=== PATIENT | male | born 1960 | race Hispanic/Latino ===

== ENCOUNTER 2018-02-18 15:03 | Inpatient (IN) | payer BC, SELFPAY ==
[2018-02-18 16:20] LABS: #Basophils 0.1 thou/uL (0.0-0.2); #Eosinphils 0.1 thou/uL (0.0-0.7); #Lymphocytes 1.3 thou/uL (1.20-3.40); #Monocytes 0.3 thou/uL (0.11-0.59); #Neutrophils 2.2 thou/uL (1.40-6.50); %Basophils 1.9 % (0.0-1.0); %Eosinophils 3.6 % (0.0-10.0); %Lymphocytes 32.4 % (21.0-51.0); %Monocytes 7.4 % (0.0-10.0); %Neutrophils 54.7 % (42.0-75.0); Mean Corpuscular HGB CONC 32.9 g/dL (32.0-36.0); Mean Corpuscular Hemoglobin 32.9 pg (27.0-31.0); Mean Platelet Volume 7.7 fL (7.4-10.4); Platelet Count 165 thou/uL (130-400); RBC Distribution Width 11.6 % (11.5-14.5); Red Blood Cell (RBC) Count 4.25 mill/uL (4.70-6.10)
[2018-02-18 16:27] LABS: INR-International Normal Ratio 0.9; Prothrombin Time 12.2 SEC (12.0-14.7)
[2018-02-18 16:32] LABS: ALT (SGPT) 53 U/L (8-55); AST (SGOT) 80 U/L (5-34); Albumin 2.5 g/dL (3.5-5.0); Alkaline Phosphatase 107 U/L (40-150); Anion Gap 10 mmol/L (10-20); BUN (Urea Nitrogen) 44 mg/dL (8.4-25.7); Bilirubin, Total 0.3 mg/dL (0.2-1.2); Calc. Creatinine Clearance 0 mL/min (70-130); Calcium 8.5 mg/dL (7.8-10.44); Carbon Dioxide 28 mmol/L (22-29); Chloride 107 mmol/L (98-107); Estimated GFR-MDRD 38; Globulin 4.1 g/dL (2.4-3.5); Glucose 93 mg/dL (70-105); Potassium 4.2 mmol/L (3.5-5.1); Protein, Total 6.6 g/dL (6.0-8.3); Sodium 141 mmol/L (136-145)
[2018-02-18 16:51] LABS: HBCM Index 0.06 S/CO (0-0.79); HBSAg Index 0.21 S/CO (0-0.99); Hep A IgM AB Non-Reactive (NonReactive); Hep A IgM S/CO 0.18 S/CO (0-0.79); Hep B Surf Ag Non-Reactive S/CO (NonReactive); Hepatitis B Core IgM Abs Non-Reactive (NonReactive)
[2018-02-18] MEDS ORDERED: cloNIDine 0.1 MG TAB ONE (17:11)
[2018-02-18 17:32] LABS: Hep C IgG Ab Reflex HepC Qnt (NonReactive); Hep C Index 16.28 S/CO (0-0.79)
--- NOTE | 2018-02-18 18:39 | CT ---
ABDOMEN AND PELVIC CT SCAN WITH IV CONTRAST: 02/18/18 HISTORY: 58-year-old male with history of abdominal pain and distention, worsening over the last month. There are linear and parenchymal changes in both lung bases, evidence for some chronic change or subs egmental atelectasis. There is very extensive ascites throughout the abdomen and pelvis. No hepatospl enomegaly. The gallbladder appears unremarkable. The pancreas and adrenal glands are unremarkable. Th ere is no renal calculus or evidence for acute obstruction. Normal appearing appendix. There is so me ascitic fluid extending into the orifice of the right inguinal canal with some associated fatty he rniation. IMPRESSION: Very extensive ascites throughout the abdomen and pelvis. Linear and parenchymal changes in the lung bases, possibly chronic versus subsegmental atelectasis. No evidence for other significant acute proc ess. No renal calculus or obstruction. No CT evidence for acute appendicitis. Other findings as ab ove. POS: [facility]
[2018-02-18 18:55] LABS: Bilirubin Negative (Negative); Blood, Urine Trace (Negative); Clarity CLEAR (Clear); Glucose, Urine (Dipstick) Negative (Negative); Leukocyte Negative (Negative); Nitrite Negative (Negative); Protein, Urine (Dipstick) 300 mg/dL (Neg-Trace); Specific Gravity, Urine 1.022 (1.002-1.036); pH, Urine 6.5 (5.0-9.0)
[2018-02-18 19:00] LABS: Bacteria/HPF None Seen HPF (None Seen); Hyaline Casts/LPF 0-3 HYALINE CAST LPF (0-3 Hyaline); Pathc Cast-AUWi Flag 0.14 (0-2.49); RBC/HPF 0-3 HPF (0-3); Squamous Epithelial None Seen HPF (0-3); WBC/HPF 0-3 HPF (0-3)
[2018-02-18 19:59] LABS: Troponin I 0.028 ng/mL (< 0.028)
[2018-02-18] MEDS ORDERED: Nitroglycerin 50 MG/250 ML BOT 250 ML ONE (20:06)
[2018-02-18] MEDS ORDERED: Nitroglycerin 2% Ointment 1 INCH/1 GM Packet ONE (22:40)
[2018-02-18 23:38] LABS: Troponin I 0.015 ng/mL (< 0.028)
[2018-02-18] MEDS ORDERED: hydrALAZINE 20 MG/ML VIAL ONE (23:43)
[2018-02-19] MEDS ORDERED: Senokot S 8.6-50 MG TAB PO PRN (03:30)
[2018-02-19] MEDS ORDERED: Bisacodyl 5 MG TAB PO PRN (03:30)
[2018-02-19] MEDS ORDERED: Acetaminophen 650 MG Suppository PR PRN (03:30)
[2018-02-19] MEDS ORDERED: Acetaminophen 325 MG TAB PO PRN (03:30)
[2018-02-19] MEDS ORDERED: Calcium Carbonate 500 MG ChewTAB PO PRN (03:30)
[2018-02-19 05:52] LABS: #Eosinphils 0.1 thou/uL (0.0-0.7); #Lymphocytes 0.9 thou/uL (1.20-3.40); #Monocytes 0.3 thou/uL (0.11-0.59); #Neutrophils 1.8 thou/uL (1.40-6.50); %Basophils 0.8 % (0.0-1.0); %Eosinophils 3.6 % (0.0-10.0); %Lymphocytes 28.7 % (21.0-51.0); %Monocytes 8.7 % (0.0-10.0); %Neutrophils 58.1 % (42.0-75.0); Hemoglobin 11.9 g/dL (14.0-18.0); Mean Corpuscular HGB CONC 33.7 g/dL (32.0-36.0); Mean Corpuscular Hemoglobin 33.5 pg (27.0-31.0); Mean Corpuscular Volume 99.4 fL (78.0-98.0); Mean Platelet Volume 7.7 fL (7.4-10.4); Platelet Count 134 thou/uL (130-400); RBC Distribution Width 11.4 % (11.5-14.5); Red Blood Cell (RBC) Count 3.56 mill/uL (4.70-6.10)
[2018-02-19 06:21] LABS: Albumin 1.9 g/dL (3.5-5.0); Anion Gap 10 mmol/L (10-20); BUN (Urea Nitrogen) 43 mg/dL (8.4-25.7); BUN/Creatinine Ratio 24.16; Calc. Creatinine Clearance 39 mL/min (70-130); Calcium 8.1 mg/dL (7.8-10.44); Carbon Dioxide 27 mmol/L (22-29); Chloride 108 mmol/L (98-107); Estimated GFR-MDRD 39; Glucose 207 mg/dL (70-105); Phosphorus 4.1 mg/dL (2.3-4.7); Potassium 4.3 mmol/L (3.5-5.1); Sodium 141 mmol/L (136-145)
[2018-02-19] MEDS: Nicotine 14 MG PATCH TD SCH (06:26)
[2018-02-19] MEDS: Heparin 5,000 UNITS/ML VIAL SC SCH ×2 (08:34→22:24)
--- NOTE | 2018-02-19 09:01 | RAD ---
CHEST ONE VIEW: History: Dyspnea. FINDINGS: No comparison. Cardiac silhouette is magnified by projection. Shallow inspiration accentuates pulmona ry markings. Vasculature upper limits of normal. Mediastinum is midline. Slight elevation of the righ t hemidiaphragm. No lobar consolidation or evidence of pneumothorax. phototypesetting equipment monitor leads overlie th e chest. IMPRESSION: No active cardiopulmonary abnormalities are demonstrated. POS: [facility]
--- NOTE | 2018-02-19 09:13 | ULT ---
RIGHT UPPER QUADRANT ULTRASOUND: HISTORY: Abdominal pain. FINDINGS: The liver demonstrates homogeneous echotexture without focal mass or intrahepatic ductal dilatation. No gallstones, gallbladder wall thickening, or pericholecystic fluid is seen. The common duct measu res 4 mm in diameter. The pancreas is not satisfactory visualized due to overlying bowel gas. The r ight kidney is unremarkable. There is free fluid consistent with ascites. IMPRESSION: 1. No evidence of cholelithiasis. 2. Ascites. POS: [facility]
[2018-02-19] MEDS ORDERED: Dextrose 50% Abboject 50 ML SYRINGE SLOW IVP PRN (09:16)
[2018-02-19] MEDS ORDERED: HumaLOG 300 UNITS/3 ML VIAL SC PRN ×2 (09:16)
[2018-02-19] MEDS ORDERED: Dextrose 5% in Water 1,000 ML IV PRN (09:16)
--- NOTE | 2018-02-19 09:17 | ULT ---
ULTRASOUND RENAL BILATERAL STANDARD: HISTORY: Acute kidney injury. COMPARISON: None. FINDINGS: The right kidney measures 10 x 5 x 5.8 cm and the left kidney measures 9.8 x 3.9 x 4.6 cm. Post void urinary bladder volume residual is 4 mL. No renal mass, hydronephrosis, or abnormal calcifications. There is large volume ascites. IMPRESSION: No acute renal injury. Large volume ascites. POS: [facility]
--- NOTE | 2018-02-19 10:10 | HP ---
CHIEF COMPLAINT: Abdominal pain. HISTORY OF PRESENT ILLNESS: This is a 58-year-old male with past medical history of diabetes mellitus type 2 and questionable hepatitis C infection, presenting with abdominal pain and distention, which has been ongoing for the past month. The patient used to be a heavy alcohol drinker and heavy tobacco smoker. The patient states that he stopped smoking a month ago. However, he is coming in because he is having abdominal pain and distention, which has been ongoing and now he is having some shortness of breath due to the abdominal distention. The patient states that his pain severity is 5/10 and is associated with some nausea, but the patient denies any vomiting. At this time, the patient denies any fever, chills, dizziness, chest pain, palpitations, dysuria, hematuria, constipation, or diarrhea. REVIEW OF SYSTEMS: The patient endorses bilateral lower extremity edema, abdominal ascites, shortness of breath, abdominal pain, and distention. Otherwise, as documented in the HPI, all other systems have been reviewed and are negative. PAST MEDICAL HISTORY: Diabetes mellitus type 2, possible hepatitis C per the patient. PAST SURGICAL HISTORY: The patient has no surgical history. FAMILY HISTORY: Reviewed and noncontributory to this visit. PSYCHIATRIC HISTORY: No previous psychiatric history. SOCIAL HISTORY: The patient states that he does not work. The patient used to drink heavily, but states that he stopped drinking 2 to 3 years ago. The patient is a former tobacco user. The patient states that he quit 2 months ago. The patient used to smoke one pack per day for the past 30 years. ALLERGIES: NO KNOWN DRUG ALLERGIES. CURRENT MEDICATIONS: The patient takes Lasix. PHYSICAL EXAMINATION: VITAL SIGNS: The patient's blood pressure is 161/93, pulse of 78, respiratory rate of 18, temperature 98.2, and oxygen is 95%. GENERAL: The patient is alert and oriented x3, not in acute distress. HEENT: Normocephalic and atraumatic. Pupils are equally round and reactive to light. Extraocular movements are intact. The patient has scleral icterus noted. Mouth, mucous membranes are moist. NECK: No JVD is noted. Trachea is midline. Full range of motion. No tenderness. LUNGS: Clear to auscultation bilaterally. No wheezing, no rales, no rhonchi is appreciated. CARDIAC: Positive S1 and S2. Regular rate and rhythm. ABDOMEN: The patient has diffuse tenderness with palpation and abdomen is soft. Positive bowel sounds in all quadrants. No peritoneal signs. EXTREMITIES: The patient has 5/5 upper extremity strength. Good pulses bilaterally. For the lower extremity, the patient has bilateral 2+ edema noted at the lower extremities. The patient has good strength in the lower extremities. NEUROLOGIC: Cranial nerves 2 through 12 are grossly intact. No neurologic deficit noted. SKIN: Warm, dry, and intact. DIAGNOSTIC DATA: A 12-lead showed normal sinus rhythm with a rate of 66. LABORATORY DATA: WBC is 4.0, hemoglobin is 14.0, hematocrit is 42.5, MCV is 100.0, and platelet count is 165. PT is 12.2, INR 0.9, and PTT 27.0. Sodium is 141, potassium is 4.2, chloride is 107, carbon dioxide of 28, anion gap of 10, BUN is 44, creatinine is 1.84, and glucose is 93. AST is 80, ALT is 53, alkaline phosphatase is 107. BNP is 318.2. UA is negative for leukocyte esterases and nitrites. Hepatitis C antibody reflex, hepatitis C quant is high. ASSESSMENT AND PLAN: This is a 58-year-old male with past medical history of severe alcohol abuse and extensive smoking history, being admitted for, 1. Ascites. At this point, the patient's Lasix is going to be held since the patient has acute renal insufficiency with creatinine of 1.84. We have consulted Nephrology to further evaluate the patient. We have also consulted GI for further workup for hepatitis C and for possible workup for ascites. We will continue to monitor the patient at this time. 2. Diabetes mellitus type 2. At this point, we will start the patient on insulin sliding scale and we will monitor the patient closely. 3. History of hepatitis C. It is questionable if the patient was previously diagnosed with hepatitis C, but the patient states that he did have problems with his liver. At this point, we have ordered a right upper quadrant ultrasound to further evaluate the liver and the patient's hepatitis C has been positive at this time. We have consulted GI. We will follow up with GI regarding any further recommendations. 4. DVT/GI prophylaxis. Job ID: [id number]
--- NOTE | 2018-02-19 11:20 | CT ---
ABDOMEN CT WITHOUT CONTRAST: COMPARISON: 02/18/2018. HISTORY: Inconclusive ultrasound yesterday. Evaluate for cause of ascites. TECHNIQUE: Abdomen CT is performed without contrast. Coronal reformatted images are submitted for interpretatio n. FINDINGS: Limited evaluation of the solid organs due to the lack of IV contrast. Chronic change in the lung ba ses suspected. No consolidation or mass. Heart size is within normal limits. No pericardial effusi on. The descending thoracic aorta and abdominal aorta are unchanged in size. Grossly, the solid organs have not had any appreciable change since the previous examination. There is diffuse stranding of the mesentery. There is redemonstration of free fluid in the abdomen and pel vis. The etiology of this fluid is uncertain. When correlating with the previous CT, no significant evidence of portal vein thrombosis or hepatic nodularity. There is hyperattenuation in the left and right renal pelvis suggesting excretion of IV contrast. Th e presence of contrast does imply decreased renal function given that the previous CT was performed y day in the evening. Correlate clinically with laboratory values. Visualized alimentary canal i s unremarkable. No lytic or blastic lesions in the osseous structures. IMPRESSION: 1. Redemonstration of ascites. Etiology is uncertain. Consider paracentesis for diagnosis. 2. Evidence of excreted contrast in the intrarenal collecting system bilaterally, implying renal roberto carlos lure. POS: [facility]
--- NOTE | 2018-02-19 12:26 | CON ---
DATE OF CONSULTATION: HISTORY OF PRESENT ILLNESS: A 58-year-old gentleman, being seen for acute kidney injury. The patient denies any nausea, vomiting, or chest pain. The patient had a baseline creatinine of 1.8 on admission, which is 1.7 today. The patient was noted to have a large volume ascites. The patient presented to the hospital with abdominal pain. The patient can give no further history as far as other medical problems are concerned. PAST MEDICAL HISTORY: Significant for diabetes mellitus and hypertension. SOCIAL HISTORY: No tobacco, alcohol, or drug use. FAMILY HISTORY: Negative for ESRD. ALLERGIES: REVIEWED. MEDICATIONS: Home medications list reviewed. REVIEW OF SYSTEMS: A 15-point review of systems was performed and was negative except for positives noted above. GENERAL: HEAD: NECK: No swelling or lumps. NOSE: No epistaxis or discharge. EYES: No diplopia or pain. RESPIRATORY: CARDIOVASCULAR: GASTROINTESTINAL: /MINERAL ENGINEER: MUSCULOSKELETAL: No joint pain. NEURO/PSYCHIATRIC SYSTEMS: No suicidal ideation. No ideation. SKIN: Denies any rash or ulcer. CONSTITUTIONAL: No fever or chills. PHYSICAL EXAMINATION: CONSTITUTIONAL: The patient is awake and alert, in no acute distress. VITAL SIGNS: Afebrile, pulse 65, breathing 16, blood pressure 108/59. GENERAL APPEARANCE AND MENTAL STATUS: Fair. HEAD/NECK: Normocephalic. Atraumatic. EYES: EOMI. No deformity. EARS: Clear. No ulcers. NOSE: Intact. No lesions. MOUTH: Clear. No discharge. THROAT: Clear. No exudate. LUNGS: Clear. No crackles. CARDIAC: S1, S2. No rub. ABDOMEN: Benign. Bowel sounds positive. GENITALIA/RECTUM: Page absent. BACK/EXTREMITIES: Edema 0+. NEUROLOGICAL: Alert and motor intact. SKIN: LYMPHATICS: LABORATORY DATA: Labs show creatinine 1.7. Urine shows protein present. ASSESSMENT AND RECOMMENDATIONS: 1. Acute kidney injury with chronic kidney disease, most likely due to progressive diabetic nephropathy. Hepatorenal syndrome could be a possibility in the setting of congestive heart failure. I will order a renal imaging. 2. Hypertension, stable. 3. Anemia, stable. 4. Medications based on GFR, appropriate. No indication for dialysis. Job ID: [id number]
--- NOTE | 2018-02-19 12:44 | PDOC.PN ---
- Subjective Encounter Start Date: 02/19/18 Encounter Start Time: 09:00 Subjective: no nausea, has progressive edema in LE and abd distention -: no prior h/o paracentesis or liver disease per patient -: mild sob, no chest pain - Objective Resuscitation Status - Order Detail: 02/19/18 03:30 Resuscitation Status Routine Resuscitation Status: FULL: Full Resuscitation MAR Reviewed: Yes Vital Signs & Weight: Vital Signs (12 hours) Temp Pulse Resp BP Pulse Ox 02/19/18 12:00 97.5 F L 64 16 170/89 H 93 L 02/19/18 07:47 97.6 F 65 16 155/77 H 97 02/19/18 04:00 97.5 F L 71 18 108/59 L 96 02/19/18 01:10 97.5 F L 66 16 152/78 H 96 Weight Weight 136 lb 9.6 oz I&O: 02/18/18 02/19/18 02/20/18 06:59 06:59 06:59 Intake Total 240 Balance 240 Result Diagrams: 02/19/18 05:26 02/19/18 05:26 Additional Labs: Accuchecks 02/19/18 02/19/18 10:51 05:43 POC Glucose 109 192 H Phys Exam - Physical Examination HEENT: PERRLA, moist MMs Neck: no JVD, supple Respiratory: no wheezing, no rales Cardiovascular: RRR, no significant murmur Gastrointestinal: soft, positive bowel sounds ascites++ Musculoskeletal: pulses present, edema present Neurological: non-focal, moves all 4 limbs Psychiatric: normal affect, A&O x 3 Dx/Plan (1) Cirrhosis of liver Code(s): K74.60 - UNSPECIFIED CIRRHOSIS OF LIVER Status: Suspected Qualifiers: Ascites presence: with ascites (2) Hepatitis C Code(s): B19.20 - UNSPECIFIED VIRAL HEPATITIS C WITHOUT HEPATIC COMA Status: Suspected Qualifiers: Viral hepatitis chronicity: acute Hepatic coma status: without hepatic coma Qualified Code(s): B17.10 - Acute hepatitis C without hepatic coma (3) Hypoalbuminemia Code(s): E88.09 - OTH DISORDERS OF PLASMA-PROTEIN METABOLISM, NEC Status: Acute (4) SOLIS (acute kidney injury) Code(s): N17.9 - ACUTE KIDNEY FAILURE, UNSPECIFIED Status: Acute (5) HTN (hypertension) Code(s): I10 - ESSENTIAL (PRIMARY) HYPERTENSION Status: Chronic Qualifiers: Hypertension type: essential hypertension Qualified Code(s): I10 - Essential (primary) hypertension - Plan for usg guided paracentesis and further w/u -: echo for lv function -: cautious diuretics due to solis/hepatorenal syndrome? -: will add ceftriaxone for now, very low alb at 1.9 -: nadolol, lasix iv * . Review of Systems - Medications/Allergies Allergies/Adverse Reactions: Allergies Allergy/AdvReac Type Severity Reaction Status Date / Time No Known Drug Allergies Allergy Verified 02/19/18 02:34 Medications: Current Medications Acetaminophen (Tylenol) 650 mg PO Q4H PRN PRN Reason: Headache/Fever/Mild Pain (1-3) Acetaminophen (Tylenol) 650 mg MN Q4H PRN PRN Reason: Headache/Fever/Mild Pain (1-3) Bisacodyl (Dulcolax) 10 mg PO DAILYPRN PRN PRN Reason: Constipation Calcium Carbonate (Tums) 1,000 mg PO Q4H PRN PRN Reason: Heartburn or Indigestion Dextrose/Water (Dextrose 50%) 25 gm SLOW IVP PRN PRN PRN Reason: Hypoglycemia Glucagon (Glucagon) 1 mg IM PRN PRN PRN Reason: Hypoglycemia Heparin Sodium (Porcine) (Heparin) 5,000 units SC BID [facility] Last Admin: 02/19/18 08:34 Dose: 5,000 units Dextrose/Water (D5w) 1,000 mls @ 0 mls/hr IV .Q0M PRN PRN Reason: Hypoglycemia Influenza Virus Vaccine Quadrival (Fluzone Quad 0430-7213 Syringe) 0.5 ml IM .ONCE ONE Stop: 02/20/18 09:01 Insulin Human Lispro (Humalog) 0 units SC .MILD SLIDING SCALE PRN PRN Reason: Mild Correctional Scale Insulin Human Lispro (Humalog) 0 units SC .BEDTIME SLIDING SC PRN PRN Reason: Bedtime Correctional Scale Nicotine (Nicoderm Patch) 14 mg TD Q24HR [facility] Last Admin: 02/19/18 06:26 Dose: 14 mg Pneumococcal Polyvalent Vaccine (Pneumovax 23) 0.5 ml IM .ONCE ONE Stop: 02/20/18 09:01 Senna/Docusate Sodium (Senokot S) 2 tab PO BIDPRN PRN PRN Reason: Constipation Sodium Chloride (Flush - Normal Saline) 10 ml IVF Q12HR [facility] Last Admin: 02/19/18 08:34 Dose: 10 ml Sodium Chloride (Flush - Normal Saline) 10 ml IVF PRN PRN PRN Reason: Saline Flush
[2018-02-19] MEDS: Furosemide 40 MG/4 ML VIAL SLOW IVP SCH (15:34)
--- NOTE | 2018-02-19 15:40 | ULT ---
ULTRASOUND GUIDED PARACENTESIS: 02/19/18 HISTORY: New onset ascites. Hepatitis C and cirrhosis. COMPARISON: CT abdomen and pelvis same day and prior day. FINDINGS: The patient is brought to the ultrasound suite. All questions were answered. The patient's right lower quadrant was prepped and draped in a normal sterile fashion. Informed conse nt was obtained. Timeout performed. Approximately 5 mL of buffered lidocaine was instilled into the superficial and deep soft tissues. Sm all dermatotomy is made. Using a 5 Malagasy Yueh needle, the peritoneal space was accessed. Two liters of straw colored fluid was removed. The patient tolerated the procedure well without complication. IMPRESSION: Technically successful ultrasound guided paracentesis. POS: [facility]
[2018-02-19] MEDS ORDERED: Nadolol 40 MG TAB PO SCH (16:15)
[2018-02-19 16:45] LABS: Body Fluid Source PARACENTESIS FLD; Clarity Clear (Clear)
[2018-02-19 16:46] LABS: BF Color Colorless; BF RBC Count - Manual 84 /cumm; BF WBC/Nonhematics Ct. - Manua 52 /cumm; Tube # EDTA
[2018-02-19 17:26] LABS: BF Segmented Neutrophils 3 %; Cell Count Non Hematic 61 %; Lymphocytes 36 %
--- NOTE | 2018-02-20 03:58 | CON ---
DATE OF CONSULTATION: 02/19/2018 REASON FOR CONSULTATION: New onset ascites, possible cirrhosis. CONSULTING PHYSICIAN: Benja Ren DO HISTORY OF PRESENT ILLNESS: The patient is a 58-year-old male with past medical history of diabetes and hepatitis C, presenting with complaints of abdominal pain and distention. He states that he was in his usual state of health until approximately 2 months ago when he began having increased lower extremity edema that was shortly followed by increased abdominal distention and resulting abdominal pain. The pain was located in the periumbilical region, was characterized as a mild type pain, that was nonradiating and would reach a severity of approximately 5/10. This was associated with increased nausea without actual vomiting as well as increased shortness of breath due to his increasing abdominal distention, that ultimately brought him to the ER for healthcare assistance. During this time, he was having approximately 1 to 2 solid bowel movements per day with no difficulty with defecation. He denied any episodes of jaundice, encephalopathy, or GI bleeding. During the course of this hospitalization, he underwent paracentesis earlier today with significant improvement in his abdominal pain and his shortness of breath. Currently, he denies any nausea, vomiting, fevers, chills, shortness of breath, chest pain, abdominal pain, GI bleeding, dysphagia, or odynophagia. REVIEW OF SYSTEMS: A 10-category review of systems was obtained with all responses negative except for the pertinent positives last as listed in the HPI. PAST MEDICAL HISTORY: As per HPI. PAST SURGICAL HISTORY: None. SOCIAL HISTORY: The patient stopped using tobacco approximately 2 months ago, but also denies any IV drug use. He did quit drinking alcohol approximately 2 to 3 years ago, but prior to stopping, was drinking approximately 24 beers on the weekends. FAMILY HISTORY: Denies any GI malignancies. OUTPATIENT MEDICATIONS: Lasix (unknown dose). ALLERGIES: NO KNOWN DRUG ALLERGIES. PHYSICAL EXAMINATION: VITAL SIGNS: Temperature 99.6, pulse 61, blood pressure 162/81, respiratory rate 16, saturating 93% on room air. GENERAL: The patient was lying in bed, in no acute distress. Alert and oriented x4. Tunisian-speaking only. HEENT: Normocephalic, atraumatic. NECK: Supple. No scleral icterus or JVD noted. CARDIOVASCULAR: Regular rate and rhythm with no discernible murmurs, gallops, or rubs. RESPIRATORY: Clear to auscultation bilaterally with no discernible wheezes or rales. ABDOMEN: Normoactive bowel sounds. Soft, nontender, and nondistended. EXTREMITIES: 1+ bilateral lower extremity edema extending to bilateral knees. LABORATORY DATA: CBC with a white blood cell count of 3, hemoglobin 11.9, hematocrit 35.4, platelets 134. INR 0.9. Chemistry with a sodium of 141, potassium 4.3, chloride 108, CO2 of 27, BUN 43, creatinine 1.78, glucose 207. AST 80, ALT 53, alkaline phosphatase 107, total bilirubin 0.3, albumin 2.5. BNP 318. Hepatitis C antibody positive. Paracentesis fluid showed 52 white blood cells, 3% PMNs with fluid albumin and protein still pending. Calculation of FIB-4 score was 4.84 and APRI score of 1.6, both indicating significant fibrosis of the liver. IMAGING DATA: CT of the abdomen was obtained on February 19, 2018, which showed diffuse stranding within the mesentery as well as free fluid within the abdomen and pelvis consistent with ascites. However, there was no significant evidence of portal vein thrombosis or hepatic nodularity. There was also hyperattenuation within the left and right renal pelvis suggesting excretion of IV contrast, implying acute renal failure. ASSESSMENT AND PLAN: The patient is a 58-year-old male with past medical history of diabetes and chronic hepatitis C infection, presenting with increased abdominal distention consistent with ascites and noninvasive markers consistent for significant fibrosis and/or cirrhosis of the liver. Cirrhosis: 1. The patient is presenting with a 1 to 2 month history of increasing lower extremity edema and increasing abdominal distention with imaging consistent with ascites formation. Upon review of his current labs, both his FIB-4 and APRI scores are high, indicating a significant amount of fibrosis that is consistent with cirrhosis of the liver, coupled with his low platelet count the diagnosis of cirrhosis is more likely. However, on imaging, there is no cirrhotic morphology on imaging nor is there presence of portal hypertension that could be potentially contributing to ascites formation. Based on his initial paracentesis fluid, there is no evidence of SBP with SAAG ratio unable to be calculated at this time and fluid protein also unable to be evaluated at this time. At this point, the diagnosis of cirrhosis is more likely based on his drinking history as well as chronic hepatitis C contributing to current clinical picture with portal hypertension that is not necessarily seen on imaging studies. However, when coupled with his acute renal failure or acute renal insufficiency, it is concerning for the presence of nephrotic syndrome, which could potentially generate ascites outside the presence of cirrhosis. Recommendations: 1. We will follow up on the paracentesis fluid evaluation for albumin and protein. 2. We would order a lipid profile for possible hypertriglyceridemia consistent with nephrotic syndrome contributing to his ascites. 3. The patient will ultimately need genotyping of his hepatitis C for treatment as an outpatient. 4. Would place the patient on a low-sodium diet given the presence of ascites on imaging. 5. Would consider placing the patient on diuretic management for ascites. If continue to reaccumulate, would potentially start patient on spironolactone 50 mg daily as well as furosemide 20 mg daily given the very little amount of fluid seen on imaging and on physical examination today. 6. With a diagnosis of cirrhosis of the liver, the patient will ultimately need a screening upper endoscopy for esophageal varices as well as a screening colonoscopy as part of age-appropriate screening for malignant neoplasm in the colon. We will continue to follow. Please call with any questions. Job ID: [id number]
[2018-02-20 05:13] LABS: Cardiac Risk 4.4 (Less than 4.5)
[2018-02-20] MEDS: Nicotine 14 MG PATCH TD SCH (06:22)
[2018-02-20] MEDS: Furosemide 40 MG/4 ML VIAL SLOW IVP SCH ×2 (06:22→14:17)
[2018-02-20 08:36] LABS: Anion Gap 11 mmol/L (10-20); BUN (Urea Nitrogen) 46 mg/dL (8.4-25.7); Calc. Creatinine Clearance 40 mL/min (70-130); Calcium 8.3 mg/dL (7.8-10.44); Carbon Dioxide 27 mmol/L (22-29); Chloride 107 mmol/L (98-107); Estimated GFR-MDRD 40; Glucose 88 mg/dL (70-105); Potassium 4.4 mmol/L (3.5-5.1); Sodium 141 mmol/L (136-145)
--- NOTE | 2018-02-20 09:19 | PDOC.PN ---
- Subjective Encounter Start Date: 02/20/18 Encounter Start Time: 08:00 Subjective: no abd pain or sob -: feels better - Objective Resuscitation Status - Order Detail: 02/19/18 03:30 Resuscitation Status Routine Resuscitation Status: FULL: Full Resuscitation MAR Reviewed: Yes Vital Signs & Weight: Vital Signs (12 hours) Temp Pulse Resp BP Pulse Ox 02/20/18 08:00 98.4 F 58 L 18 138/74 93 L 02/20/18 03:40 98.8 F 64 16 128/70 95 02/19/18 23:11 99.6 F 61 16 162/81 H 93 L Weight Weight 136 lb 9.6 oz I&O: 02/19/18 02/20/18 02/21/18 06:59 06:59 06:59 Intake Total 240 490 Output Total 500 Balance 240 -10 Result Diagrams: 02/19/18 05:26 02/20/18 04:19 Additional Labs: Accuchecks 02/20/18 02/19/18 02/19/18 05:52 20:45 16:49 POC Glucose 93 182 H 106 02/19/18 10:51 POC Glucose 109 Phys Exam - Physical Examination HEENT: PERRLA, moist MMs Neck: no JVD, supple Respiratory: no wheezing, no rales Cardiovascular: RRR, no significant murmur Gastrointestinal: soft, non-tender, positive bowel sounds Musculoskeletal: pulses present, edema present Neurological: non-focal, moves all 4 limbs Psychiatric: normal affect, A&O x 3 Dx/Plan (1) Cirrhosis of liver Code(s): K74.60 - UNSPECIFIED CIRRHOSIS OF LIVER Status: Suspected Qualifiers: Ascites presence: with ascites (2) Hepatitis C Code(s): B19.20 - UNSPECIFIED VIRAL HEPATITIS C WITHOUT HEPATIC COMA Status: Suspected Qualifiers: Viral hepatitis chronicity: acute Hepatic coma status: without hepatic coma Qualified Code(s): B17.10 - Acute hepatitis C without hepatic coma (3) Hypoalbuminemia Code(s): E88.09 - OTH DISORDERS OF PLASMA-PROTEIN METABOLISM, NEC Status: Acute (4) SOLIS (acute kidney injury) Code(s): N17.9 - ACUTE KIDNEY FAILURE, UNSPECIFIED Status: Acute (5) HTN (hypertension) Code(s): I10 - ESSENTIAL (PRIMARY) HYPERTENSION Status: Chronic Qualifiers: Hypertension type: essential hypertension Qualified Code(s): I10 - Essential (primary) hypertension - Plan had paracentesis with removal of 2 liters, no signs of sbp -: continue diuresis, will optimize meds when renal function stabilizes -: on nadolol -: kenroy binhe to LE -: tx to med floor, to amb as tolerated, dc plan in am * . Review of Systems - Medications/Allergies Allergies/Adverse Reactions: Allergies Allergy/AdvReac Type Severity Reaction Status Date / Time No Known Drug Allergies Allergy Verified 02/19/18 02:34 Medications: Current Medications Acetaminophen (Tylenol) 650 mg PO Q4H PRN PRN Reason: Headache/Fever/Mild Pain (1-3) Acetaminophen (Tylenol) 650 mg AR Q4H PRN PRN Reason: Headache/Fever/Mild Pain (1-3) Bisacodyl (Dulcolax) 10 mg PO DAILYPRN PRN PRN Reason: Constipation Calcium Carbonate (Tums) 1,000 mg PO Q4H PRN PRN Reason: Heartburn or Indigestion Dextrose/Water (Dextrose 50%) 25 gm SLOW IVP PRN PRN PRN Reason: Hypoglycemia Furosemide (Lasix) 40 mg SLOW IVP 0600,1400 [facility] Last Admin: 02/20/18 06:22 Dose: 40 mg Glucagon (Glucagon) 1 mg IM PRN PRN PRN Reason: Hypoglycemia Heparin Sodium (Porcine) (Heparin) 5,000 units SC BID [facility] Last Admin: 02/19/18 22:24 Dose: 5,000 units Dextrose/Water (D5w) 1,000 mls @ 0 mls/hr IV .Q0M PRN PRN Reason: Hypoglycemia Insulin Human Lispro (Humalog) 0 units SC .MILD SLIDING SCALE PRN PRN Reason: Mild Correctional Scale Insulin Human Lispro (Humalog) 0 units SC .BEDTIME SLIDING SC PRN PRN Reason: Bedtime Correctional Scale Nadolol (Corgard) 40 mg PO DAILY [facility] Nicotine (Nicoderm Patch) 14 mg TD Q24HR [facility] Last Admin: 02/20/18 06:22 Dose: 14 mg Senna/Docusate Sodium (Senokot S) 2 tab PO BIDPRN PRN PRN Reason: Constipation Sodium Chloride (Flush - Normal Saline) 10 ml IVF Q12HR [facility] Last Admin: 02/19/18 22:24 Dose: 10 ml Sodium Chloride (Flush - Normal Saline) 10 ml IVF PRN PRN PRN Reason: Saline Flush
[2018-02-20] MEDS: Heparin 5,000 UNITS/ML VIAL SC SCH ×2 (09:58→20:25)
[2018-02-20] MEDS: Nadolol 40 MG TAB PO SCH (10:00)
--- NOTE | 2018-02-20 14:42 | PRG ---
DATE OF SERVICE: 02/20/2018 SUBJECTIVE: A 58-year-old gentleman, being seen for acute kidney injury. The patient denied nausea, vomiting, or chest pain. OBJECTIVE: CONSTITUTIONAL: The patient is awake and alert. VITAL SIGNS: Afebrile. Pulse 65, breathing 16, blood pressure 130/74. GENERAL APPEARANCE AND MENTAL STATUS: Fair. HEAD/NECK: Normocephalic. Atraumatic. EYES: EOMI. No deformity. EARS: Clear. No ulcers. NOSE: Intact. No lesions. MOUTH: Clear. No discharge. THROAT: Clear. No exudate. LUNGS: Clear. No crackles. CARDIAC: S1, S2. No rub. ABDOMEN: Benign. Bowel sounds positive. GENITALIA/RECTUM: Page absent. BACK/EXTREMITIES: Edema 0+. NEUROLOGICAL: Alert and motor intact. SKIN: LYMPHATICS: ASSESSMENT AND RECOMMENDATIONS: 1. Chronic kidney disease, stage 3, multifactorial, stable. 2. Hypertension, stable. 3. Anemia, stable. 4. Medication based on GFR, appropriate. No indication for dialysis. Job ID: [id number]
[2018-02-20] MEDS ORDERED: hydrALAZINE 20 MG/ML VIAL SLOW IVP PRN (20:48)
--- NOTE | 2018-02-20 23:56 | PRG ---
DATE OF SERVICE: 02/20/2018 REASON FOR CONSULTATION: New onset ascites, possible cirrhosis. SUBJECTIVE: Since the patient had the removal of approximately 2 L of ascitic fluid yesterday, he has had improvement in terms of his abdominal pain and shortness of breath. Currently, he denies any nausea, vomiting, fevers, chills, shortness of breath, chest pain, abdominal pain, GI bleeding, encephalopathy, jaundice, dysphagia, or odynophagia. He does continue to have minimal lower extremity edema, but unchanged from previous. OBJECTIVE: VITAL SIGNS: Temperature 98.4, pulse 60, blood pressure 194/86, respiratory rate 18, and saturating 96% on room air. GENERAL: The patient is lying in bed, in no acute distress. Bahamian-speaking only. CARDIOVASCULAR: Regular rate and rhythm. RESPIRATORY: Clear to auscultation bilaterally. ABDOMEN: Normoactive bowel sounds. Soft, nontender, nondistended. EXTREMITIES: 1+ bilateral lower extremity edema extending to the bilateral knees. LABORATORY DATA: Chemistry with a sodium of 141, potassium 4.4, chloride 107, CO2 of 27, BUN 46, creatinine 1.74, glucose 88, triglycerides 111, and LDL 126. IMAGING DATA: No current GI imaging is available for review. ASSESSMENT AND PLAN: The patient is a 58-year-old male with past medical history of diabetes and chronic hepatitis C infection, presenting with increased abdominal distention and elevated noninvasive markers for fibrosis consistent with ascites secondary to cirrhosis of liver. Cirrhosis: The patient is initially presented with a 1 to 2-month history of increased lower extremity edema and abdominal distention with imaging consistent with ascites formation. Upon review of his labs and calculation of FIB-4 and APRI scores. The scores are high indicating significant amount of fibrosis within the liver. When coupled with his thrombocytopenia, it further lends itself towards a diagnosis of cirrhosis with most logical etiology being chronic hepatitis C infection. With his acute renal failure, there was some concern for possible nephrotic syndrome contributing to his current ascites state, but with normal lipid panel, this is less likely. Upon review of the paracentesis fluid, the fluid did not exhibit any evidence of spontaneous bacterial peritonitis and has a low protein, making a cardiac etiology less likely. The fluid albumin is still pending at this time, but I would expect the SAAG ratio to be greater than 1.1, consistent with portal hypertension secondary to cirrhosis of the liver. RECOMMENDATIONS: 1. We will follow up on the paracentesis fluid for fluid albumin and confirmation of SAAG ratio. 2. The patient will ultimately need genotyping of his hepatitis C, but this can be done as an outpatient. 3. We would continue the patient on a low-sodium diet given the presence of ascites on imaging with most likely underlying etiology being cirrhosis of the liver. 4. We would consider placing the patient on diuretic management for ascites; however, given his acute renal failure, holding off on this may be prudent. Once the patient's renal function improves, we will consider placing the patient on spironolactone 50 mg daily as well as furosemide 20 mg daily. 5. With a diagnosis of cirrhosis of the liver, he will ultimately need both upper and lower endoscopy for evaluation of esophageal varices and colonic neoplasm of the colon respectively. Given his improved clinical status, no evidence of active infection, and normal synthetic function of the liver, we will sign off at this time. Please have the patient follow up in the GI Clinic within 2 to 3 weeks of discharge for further management of his cirrhosis with ascites. Please call with any additional questions. Job ID: [id number]
[2018-02-21] MEDS: Nicotine 14 MG PATCH TD SCH (05:39)
[2018-02-21] MEDS: Furosemide 40 MG/4 ML VIAL SLOW IVP SCH (05:40)
[2018-02-21 06:14] VITALS: BMI 23.0
[2018-02-21] MEDS: Nadolol 40 MG TAB PO SCH (09:00)
[2018-02-21] MEDS: Amlodipine 5 MG TAB PO SCH (09:00)
[2018-02-21] MEDS: Heparin 5,000 UNITS/ML VIAL SC SCH ×2 (09:07→21:04)
[2018-02-21 09:58] LABS: #Eosinphils 0.2 thou/uL (0.0-0.7); #Lymphocytes 1.4 thou/uL (1.20-3.40); #Monocytes 0.4 thou/uL (0.11-0.59); #Neutrophils 2.6 thou/uL (1.40-6.50); %Basophils 0.9 % (0.0-1.0); %Eosinophils 3.9 % (0.0-10.0); %Lymphocytes 30.2 % (21.0-51.0); %Monocytes 9.3 % (0.0-10.0); %Neutrophils 55.7 % (42.0-75.0); Hemoglobin 13.6 g/dL (14.0-18.0); Mean Corpuscular Hemoglobin 33.4 pg (27.0-31.0); Mean Corpuscular Volume 98.5 fL (78.0-98.0); Mean Platelet Volume 7.7 fL (7.4-10.4); Platelet Count 172 thou/uL (130-400); RBC Distribution Width 11.4 % (11.5-14.5); Red Blood Cell (RBC) Count 4.06 mill/uL (4.70-6.10); White Blood Cell (WBC) Count 4.6 thou/uL (4.8-10.8)
[2018-02-21 10:29] LABS: Anion Gap 11 mmol/L (10-20); BUN (Urea Nitrogen) 49 mg/dL (8.4-25.7); Calc. Creatinine Clearance 33 mL/min (70-130); Calcium 8.1 mg/dL (7.8-10.44); Carbon Dioxide 27 mmol/L (22-29); Chloride 105 mmol/L (98-107); Estimated GFR-MDRD 34; Glucose 173 mg/dL (70-105); Potassium 4.3 mmol/L (3.5-5.1); Sodium 139 mmol/L (136-145)
--- NOTE | 2018-02-21 11:02 | PRG ---
DATE OF SERVICE: 02/21/2018 SUBJECTIVE: This is a 58-year-old gentleman being seen for acute kidney injury. The patient denies any nausea, vomiting, or chest pain. OBJECTIVE: CONSTITUTIONAL: Awake, alert, in no acute distress. VITAL SIGNS: Afebrile. Pulse 62, breathing 16, blood pressure . GENERAL APPEARANCE AND MENTAL STATUS: Fair. HEAD/NECK: Normocephalic. Atraumatic. EYES: EOMI. No deformity. EARS: Clear. No ulcers. NOSE: Intact. No lesions. MOUTH: Clear. No discharge. THROAT: Clear. No exudate. LUNGS: Clear. No crackles. CARDIAC: S1, S2. No rub. ABDOMEN: Benign. Bowel sounds positive. GENITALIA/RECTUM: Page absent. BACK/EXTREMITIES: Edema 0+. NEUROLOGICAL: Alert and motor intact. LABORATORY DATA: Hemoglobin 13.6. Creatinine is . ASSESSMENT: 1. Acute kidney injury with chronic kidney disease. Follow renal function. 2. Hypertension, stable. 3. Anemia, stable. 4. Medication based on glomerular filtration rate appropriate. Job ID: [id number]
[2018-02-21 11:10] LABS: HCV log10 5.593 (.); Hep C PCR-Quant 392000 IU/mL (.)
--- NOTE | 2018-02-21 11:58 | PDOC.PN ---
- Subjective Encounter Start Date: 02/21/18 Encounter Start Time: 08:00 Subjective: no sob, is passing urine -: no abd pain -: Lower extrem swelling is down after being on kenroy hose - Objective Resuscitation Status - Order Detail: 02/19/18 03:30 Resuscitation Status Routine Resuscitation Status: FULL: Full Resuscitation MAR Reviewed: Yes Vital Signs & Weight: Vital Signs (12 hours) Temp Pulse Resp BP BP Pulse Ox 02/21/18 09:00 62 153/81 H 02/21/18 08:00 98.9 F 62 17 153/81 H 93 L 02/21/18 04:00 99.4 F 63 16 133/69 96 02/21/18 00:00 98.5 F 60 16 157/77 H 96 Weight Weight 129 lb 14.4 oz I&O: 02/20/18 02/21/18 02/22/18 06:59 06:59 06:59 Intake Total 490 500 Output Total 500 Balance -10 500 Result Diagrams: 02/21/18 09:38 02/21/18 09:38 Additional Labs: Accuchecks 02/21/18 02/20/18 02/20/18 04:45 19:44 16:08 POC Glucose 112 H 136 H 144 H Phys Exam - Physical Examination HEENT: PERRLA, moist MMs Neck: no JVD, supple Respiratory: no wheezing, no rales Cardiovascular: RRR, no significant murmur Gastrointestinal: soft, non-tender, positive bowel sounds Musculoskeletal: no edema, pulses present Neurological: non-focal, moves all 4 limbs Psychiatric: normal affect, A&O x 3 Dx/Plan (1) Cirrhosis of liver Code(s): K74.60 - UNSPECIFIED CIRRHOSIS OF LIVER Status: Acute Qualifiers: Ascites presence: with ascites (2) Hepatitis C Code(s): B19.20 - UNSPECIFIED VIRAL HEPATITIS C WITHOUT HEPATIC COMA Status: Acute Qualifiers: Viral hepatitis chronicity: acute Hepatic coma status: without hepatic coma Qualified Code(s): B17.10 - Acute hepatitis C without hepatic coma (3) Hypoalbuminemia Code(s): E88.09 - OTH DISORDERS OF PLASMA-PROTEIN METABOLISM, NEC Status: Acute (4) SOLIS (acute kidney injury) Code(s): N17.9 - ACUTE KIDNEY FAILURE, UNSPECIFIED Status: Acute (5) HTN (hypertension) Code(s): I10 - ESSENTIAL (PRIMARY) HYPERTENSION Status: Chronic Qualifiers: Hypertension type: essential hypertension Qualified Code(s): I10 - Essential (primary) hypertension - Plan renal function in am -: dc plan in am if renal function stabilizes -: scale back lasix to oral daily -: nadolol, no spironolactone until his renal function holds up -: outpt appt for hep C treatment, will need renal f/u as well * . Review of Systems - Medications/Allergies Allergies/Adverse Reactions: Allergies Allergy/AdvReac Type Severity Reaction Status Date / Time No Known Drug Allergies Allergy Verified 02/19/18 02:34 Medications: Current Medications Acetaminophen (Tylenol) 650 mg PO Q4H PRN PRN Reason: Headache/Fever/Mild Pain (1-3) Acetaminophen (Tylenol) 650 mg NV Q4H PRN PRN Reason: Headache/Fever/Mild Pain (1-3) Amlodipine Besylate (Norvasc) 5 mg PO DAILY [facility] Last Admin: 02/21/18 09:00 Dose: 5 mg Bisacodyl (Dulcolax) 10 mg PO DAILYPRN PRN PRN Reason: Constipation Calcium Carbonate (Tums) 1,000 mg PO Q4H PRN PRN Reason: Heartburn or Indigestion Dextrose/Water (Dextrose 50%) 25 gm SLOW IVP PRN PRN PRN Reason: Hypoglycemia Furosemide (Lasix) 40 mg PO DAILY [facility] Glucagon (Glucagon) 1 mg IM PRN PRN PRN Reason: Hypoglycemia Heparin Sodium (Porcine) (Heparin) 5,000 units SC BID [facility] Last Admin: 02/21/18 09:07 Dose: 5,000 units Hydralazine HCl (Apresoline) 10 mg SLOW IVP Q4H PRN PRN Reason: SBP > 180 Last Admin: 02/20/18 21:09 Dose: 10 mg Dextrose/Water (D5w) 1,000 mls @ 0 mls/hr IV .Q0M PRN PRN Reason: Hypoglycemia Insulin Human Lispro (Humalog) 0 units SC .MILD SLIDING SCALE PRN PRN Reason: Mild Correctional Scale Last Admin: 02/20/18 12:30 Dose: 2 unit Insulin Human Lispro (Humalog) 0 units SC .BEDTIME SLIDING SC PRN PRN Reason: Bedtime Correctional Scale Nadolol (Corgard) 40 mg PO DAILY [facility] Last Admin: 02/21/18 09:00 Dose: 40 mg Nicotine (Nicoderm Patch) 14 mg TD Q24HR [facility] Last Admin: 02/21/18 05:39 Dose: 14 mg Senna/Docusate Sodium (Senokot S) 2 tab PO BIDPRN PRN PRN Reason: Constipation Sodium Chloride (Flush - Normal Saline) 10 ml IVF Q12HR [facility] Last Admin: 02/21/18 09:01 Dose: 10 ml Sodium Chloride (Flush - Normal Saline) 10 ml IVF PRN PRN PRN Reason: Saline Flush
[2018-02-22] MEDS: Nicotine 14 MG PATCH TD SCH (05:11)
[2018-02-22] MEDS: Heparin 5,000 UNITS/ML VIAL SC SCH (08:27)
[2018-02-22] MEDS: Nadolol 40 MG TAB PO SCH (08:27)
[2018-02-22] MEDS: Amlodipine 5 MG TAB PO SCH (08:27)
[2018-02-22] MEDS ORDERED: Furosemide 40 MG TAB PO SCH (09:00)
[2018-02-22 09:38] LABS: Anion Gap 10 mmol/L (10-20); BUN (Urea Nitrogen) 49 mg/dL (8.4-25.7); Calc. Creatinine Clearance 33 mL/min (70-130); Carbon Dioxide 28 mmol/L (22-29); Chloride 106 mmol/L (98-107); Estimated GFR-MDRD 35; Glucose 193 mg/dL (70-105); Potassium 4.6 mmol/L (3.5-5.1); Sodium 139 mmol/L (136-145)
[2018-02-22 11:53] VITALS: BP 152/71; TEMP 98
--- NOTE | 2018-02-22 13:34 | PDOC.PN ---
- Subjective Encounter Start Date: 02/22/18 Encounter Start Time: 07:15 Subjective: no sob, is passing urine with no freq or burning -: amb and eating well - Objective Resuscitation Status - Order Detail: 02/19/18 03:30 Resuscitation Status Routine Resuscitation Status: FULL: Full Resuscitation MAR Reviewed: Yes Vital Signs & Weight: Vital Signs (12 hours) Temp Pulse Resp BP BP Pulse Ox 02/22/18 11:52 98 F 57 L 18 152/71 H 94 L 02/22/18 08:27 57 L 129/73 02/22/18 08:23 98.0 F 57 L 16 129/73 94 L 02/22/18 08:00 94 L Weight Weight 128 lb 3.2 oz I&O: 02/21/18 02/22/18 02/23/18 06:59 06:59 06:59 Intake Total 500 1120 Balance 500 1120 Result Diagrams: 02/21/18 09:38 02/22/18 09:10 Additional Labs: Accuchecks 02/22/18 02/22/18 02/21/18 11:52 04:30 19:46 POC Glucose 113 H 98 96 02/21/18 02/21/18 17:13 12:02 POC Glucose 142 H 115 H Phys Exam - Physical Examination HEENT: PERRLA, moist MMs Neck: no JVD, supple Respiratory: no wheezing, no rales Cardiovascular: RRR, no significant murmur Gastrointestinal: soft, non-tender, positive bowel sounds Musculoskeletal: no edema, pulses present Neurological: non-focal, moves all 4 limbs Psychiatric: normal affect, A&O x 3 Dx/Plan (1) Cirrhosis of liver Code(s): K74.60 - UNSPECIFIED CIRRHOSIS OF LIVER Status: Acute Qualifiers: Ascites presence: with ascites (2) Hepatitis C Code(s): B19.20 - UNSPECIFIED VIRAL HEPATITIS C WITHOUT HEPATIC COMA Status: Acute Qualifiers: Viral hepatitis chronicity: acute Hepatic coma status: without hepatic coma Qualified Code(s): B17.10 - Acute hepatitis C without hepatic coma (3) Hypoalbuminemia Code(s): E88.09 - OTH DISORDERS OF PLASMA-PROTEIN METABOLISM, NEC Status: Acute (4) SOLIS (acute kidney injury) Code(s): N17.9 - ACUTE KIDNEY FAILURE, UNSPECIFIED Status: Acute (5) HTN (hypertension) Code(s): I10 - ESSENTIAL (PRIMARY) HYPERTENSION Status: Chronic Qualifiers: Hypertension type: essential hypertension Qualified Code(s): I10 - Essential (primary) hypertension - Plan hemostable -: continue lasix, nadolol -: will need spironolactone once his renal function comes to baseline -: outpt f/u with for hep C treatment and for solis -: dc pt home * . Review of Systems - Medications/Allergies Allergies/Adverse Reactions: Allergies Allergy/AdvReac Type Severity Reaction Status Date / Time No Known Drug Allergies Allergy Verified 02/19/18 02:34
--- NOTE | 2018-02-22 14:41 | PRG ---
DATE OF SERVICE: 02/22/2018 SUBJECTIVE: A 58-year-old gentleman being seen for acute kidney injury. Denies any nausea, vomiting, or chest pain. OBJECTIVE: CONSTITUTIONAL: Awake, alert, in no acute distress. VITAL SIGNS: Afebrile. Pulse 57, breathing 16, and blood pressure 152/74. GENERAL APPEARANCE AND MENTAL STATUS: Fair. HEAD/NECK: Normocephalic. Atraumatic. EYES: EOMI. No deformity. EARS: Clear. No ulcers. NOSE: Intact. No lesions. MOUTH: Clear. No discharge. THROAT: Clear. No exudate. LUNGS: Clear. No crackles. CARDIAC: S1, S2. No rub. ABDOMEN: Benign. Bowel sounds positive. GENITALIA/RECTUM: Page absent. BACK/EXTREMITIES: Edema 0+. NEUROLOGICAL: Alert and motor intact. SKIN: LYMPHATICS: LABORATORY DATA: Labs show hemoglobin 13. Creatinine was 1.9. ASSESSMENT: 1. Acute kidney injury with chronic kidney disease stage 4, stable. 2. Hypertension, stable. 3. Anemia, stable. 4. Medication based on glomerular filtration rate appropriate. PLAN: The patient will follow up to see me in 1 week. Job ID: [id number]
--- NOTE | 2018-02-23 12:11 | DIS ---
DATE OF ADMISSION: 02/18/2018 DATE OF DISCHARGE: 02/22/2018 DISCHARGE DISPOSITION: To home. PRIMARY DISCHARGE DIAGNOSES: New onset cirrhosis with ascites likely secondary to hepatitis C, severe hypoalbuminemia, acute kidney injury, hypertension. PROCEDURES DONE DURING HOSPITALIZATION: The patient has had abdominal and pelvic CAT scan with IV contrast done, which showed extensive ascites throughout abdomen and pelvis. No renal calculus or obstruction was seen. No evidence of acute appendicitis. Abdominal ultrasound done showed no evidence of cholelithiasis. The patient has had ascites. He has had paracentesis with removal of 2 L of straw-colored fluid done on 02/19/2018 by Interventional Radiology under ultrasound guidance. Ascitic fluid cytology showed mesothelial cells, lymphocytes, and neutrophils. No malignant cells were seen. Echo with 2D Doppler showed EF of 50% to 55%, diastolic dysfunction. Ascitic fluid culture showed no growth in 5 days. H and H 13 and 40, platelet count 172, MCV is 98. INR 0.9, PTT 27. Discharge BUN and creatinine are 49 and 1.9. Admitting BUN and creatinine were 44 and 1.8. Albumin was 2.5. BNP 318. Troponin x3 negative. AST 80, ALT 53, alkaline phosphatase 107, total bilirubin 0.3. Total cholesterol 191, triglycerides 111, LDL 126, HDL 43. Paracentesis fluid was colorless and clear with 52 wbc's and 3% neutrophils. Ascitic fluid albumin was 0.4. Hepatitis C antibody was positive with HCV RNA titer showing 392,000 international units per mL and 5.593 PCR log10. DISCHARGE MEDICATIONS: 1. Nadolol 40 mg p.o. daily. 2. Lasix 40 mg p.o. daily. INPATIENT CONSULT: Dr. Kiser for Nephrology; Dr. Brooke for gastroenterology. DISCHARGE PLAN: The patient to follow up with Dr. Brooke in 2 weeks and primary care physician in one week. He also needs to follow up with Dr. Kiser as advised. BRIEF COURSE DURING HOSPITALIZATION: The patient initially came in with complaints of abdominal pain. Clinically, the patient had ascites. This was new onset ascites with lower extremity edema. The patient also had severe hypoalbuminemia. His initial hepatitis panel came back positive for hep C antibody. He has had multiple workups done for ascites. The patient has had consultation with Dr. Des Brooke of Gastroenterology. He was gently diuresed during his stay here. The patient had acute kidney injury on arrival. He also had a paracentesis done, which showed no evidence of SBP. The patient likely has cirrhosis secondary to hep C. He needs to follow up with Dr. Des Brooke in 2 weeks for definitive treatment of hep C. He also needs to follow up with Dr. Kiser for his acute kidney injury. He is placed on nadolol and Lasix once daily. This can be escalated in addition to spironolactone once his renal function comes back to his baseline. Please see a [id number] documentation for the day of discharge on Novaled. Job ID: [id number]
== END 2018-02-22 13:28 | disposition home or self-care (01) | DRG 442 ==
LOC: ERS 15:03 → OBSVTOIN 23:47 → 2SE 23:47 → T4-A 02-20 14:53
PROVIDERS: ADMIT Internal Medicine; ATTEND Internal Medicine
PROC: 0W9G3ZZ Drainage of Peritoneal Cavity, Percutaneous Approach (ICD-10-PCS; principal; 2018-02-19)
DX: B19.20 Unspecified viral hepatitis C without hepatic coma (principal); R18.8 Other ascites; N17.9 Acute kidney failure, unspecified; N18.4 Chronic kidney disease, stage 4 (severe); K74.60 Unspecified cirrhosis of liver; I10 Essential (primary) hypertension; I12.9 Hypertensive chronic kidney disease with stage 1 through stage 4 chronic kidney disease, or unspecified chronic kidney disease; D64.9 Anemia, unspecified; E11.22 Type 2 diabetes mellitus with diabetic chronic kidney disease; E11.21 Type 2 diabetes mellitus with diabetic nephropathy; Z87.891 Personal history of nicotine dependence
CPT/HCPCS: 36415; 36416; 49083; 71045; 74150; 74177; 76705; 76770; 80048; 80053; 80061; 80069; 80074; 81003; 81015; 82042; 82140; 83615; 83735; 83880; 84157; 84484; 85025; 85060; 85610; 85730; 87070; 87205; 87522; 88112; 88305; 89051; 90471; 90686; 90732; 93005; 93306; 96365; 96366; 96375; G0008; G0009; J0360; J1644; J1940